=== PATIENT | male | born 1960 | race Caucasian/White ===

== ENCOUNTER 2016-10-17 02:22 | Emergency (ER) | payer OTHER ==
[~2016-10-17] VITALS: Ht 170.2 cm; Wt 102.4 kg
[2016-10-17] MEDS ORDERED: PEN-VEE K,VEET500 MG PO (03:00)
[2016-10-17] MEDS ORDERED: PERCOCET 5/31 TABLET PO (03:00)
[2016-10-17 03:05] VITALS: BP 158/92
== END 2016-10-17 03:15 | disposition home or self-care (01) ==
LOC: EME 02:22
DX: K02.9 Dental caries, unspecified (principal)
CPT/HCPCS: 99281; 99283